=== PATIENT | female | born 1970 | race Caucasian/White ===

== ENCOUNTER 2021-07-03 12:22 | Inpatient (IN) | payer MEDICARE, MEDICAID ==
[~2021-07-03] VITALS: Ht 165.1 cm; Wt 46.9 kg
[2021-07-03] MEDS ORDERED: FLUC100T68 PO (18:22)
[2021-07-03] MEDS ORDERED: ALBU8HFA IH (18:22)
[2021-07-03] MEDS ORDERED: FAMO20 PO (18:22)
[2021-07-03] MEDS ORDERED: SULF-261 PO (18:22)
[2021-07-03] MEDS ORDERED: HALOPERIDOL 5 MG TABLET PO PRN (19:45)
[2021-07-03] MEDS ORDERED: ZOLPIDEM TARTRATE 10 MG TABLET PO PRN (19:45)
[2021-07-03 20:55] VITALS: BP 109/62
[2021-07-03] MEDS ORDERED: ARIP10TA38 PO (23:14)
[2021-07-04 06:43] VITALS: BP 115/78
[2021-07-04 07:20] LABS: BASOPHILS % (AUTO) 0.4 % (0.0-2.0); EOSINOPHILS % (AUTO) 0.7 % (1.0-6.0); HEMATOCRIT 37.3 % (36-46); HEMOGLOBIN 12.8 g/dL (12.0-16.0); LYMPHOCYTES # (AUTO) 1.6 K/uL (1.0-4.8); LYMPHOCYTES % (AUTO) 18.5 % (22.0-44.0); MEAN CORPUSCULAR HEMOGLOBIN 32.5 pg (26.0-34.0); MEAN CORPUSCULAR HGB CONC 34.4 G/dL (31.0-37.0); MEAN CORPUSCULAR VOLUME 94 fL (80-100); MONOCYTES # (AUTO) 0.9 K/uL (0.1-1.0); MONOCYTES % (AUTO) 10.6 % (2.0-9.0); NEUTROPHILS # (AUTO) 6.2 K/uL (1.8-7.7); NEUTROPHILS % (AUTO) 69.8 % (40.0-70.0); PLATELET COUNT (AUTO) 368 K/uL (150-450); RED BLOOD CELL COUNT(AUTO) 3.96 MIL/uL (4.00-5.20); RED CELL DISTRIBUTION WIDTH 14.6 % (11.5-14.5)
[2021-07-04 07:43] LABS: HEMOGLOBIN A1C 5.7 % (3.8-5.6)
[2021-07-04 07:56] LABS: ALANINE AMINOTRANSFERASE 25 U/L (12-78); ALBUMIN 2.8 g/dL (3.4-5.0); ALKALINE PHOSPHATASE 125 U/L (46-116); ANION GAP 4 mmol/L (8-16); ASPARTATE AMINOTRANSFERASE 16 U/L (15-37); BILIRUBIN,TOTAL 0.4 mg/dL (0.1-1.0); CALCIUM, TOTAL 8.7 mg/dL (8.8-10.5); CARBON DIOXIDE 34 mmol/L (22-29); CHLORIDE 100 mmol/L (98-107); CHOLESTEROL 173 mg/dL (131-200); CREATININE 0.76 mg/dL (0.60-1.30); FREE T4 (FREE THYROXINE) 1.53 ng/dL (0.76-1.46); GLOMERULAR FILTR. RATE CALC > 60 mL/min (>60); GLUCOSE,RANDOM 81 mg/dL (70-110); HDL CHOLESTEROL 29 mg/dL (40-60); LDL CHOL (CALC.) 128 mg/dL (0-130); POTASSIUM 3.7 mmol/L (3.5-5.1); SODIUM SERUM 138 mmol/L (136-145); THYROID STIMULATING HORMONE 0.74 uIU/mL (0.36-3.74); TOTAL PROTEIN, SERUM 7.5 g/dL (6.4-8.2); TRIGLYCERIDES 81 mg/dL (15-150); UREA NITROGEN, BLOOD 16 mg/dL (7-18)
[2021-07-04 08:15] VITALS: BP 110/60
[2021-07-04] MEDS: FAMOTIDINE 20 MG TABLET PO SCH (08:23)
[2021-07-04] MEDS: CEPHALEXIN MONOHYDRATE 500 MG CAPSULE PO SCH ×2 (08:23→16:25)
[2021-07-04] MEDS: NICOTINE 21 MG/24 HOUR PATCH TD PRN (08:27)
[2021-07-04] MEDS: PETROLATUM,WHITE 28 GM JELLY TP PRN (08:27)
[2021-07-04] MEDS: INFLUENZA VIRUS VACCINE QVS 2021-22 (6MO+)/PF 60 MCG/0.5 ML SYRINGE IM. ONE ×2 (08:28→16:52)
[2021-07-04] MEDS: PNEUMOCOCCAL VACCINE POLYVALENT 0.5 ML VIAL [PPSV23] IM. ONE ×2 (08:29→16:54)
[2021-07-04] MEDS ORDERED: LORazepam 2 MG/ML VIAL ONE (08:34)
[2021-07-04] MEDS ORDERED: DiphenhydrAMINE HCL 50 MG/ML VIAL ONE (08:34)
[2021-07-04] MEDS ORDERED: HALOPERIDOL LACTATE 5 MG/ML VIAL ONE (08:34)
[2021-07-04] MEDS ORDERED: MAGNESIUM HYDROXIDE SUSPENSION 30 ML UDCUP PO PRN (08:45)
[2021-07-04] MEDS ORDERED: BACITRACIN 28 GM OINTMENT TP PRN (08:45)
[2021-07-04] MEDS ORDERED: IBUPROFEN 600 MG TABLET PO PRN (08:45)
[2021-07-04] MEDS ORDERED: DOCUSATE SODIUM 100 MG CAPSULE PO PRN (08:45)
[2021-07-04] MEDS ORDERED: ONDANSETRON HCL 4 MG TABLET PO PRN (08:45)
[2021-07-04] MEDS ORDERED: MAG HYDROX/AL HYDROX/SIMETH ES 30 ML SUSPENSION UDCUP PO PRN (08:45)
[2021-07-04] MEDS ORDERED: PETROLATUM,WHITE 28 GM JELLY TP PRN (08:45)
[2021-07-04] MEDS ORDERED: OMEPRAZOLE 20 MG CAPSULE PO PRN (08:45)
[2021-07-04] MEDS ORDERED: BENZOCAINE/MENTHOL LOZENGE PO PRN (08:45)
[2021-07-04] MEDS ORDERED: LOPERAMIDE HCL 2 MG CAPSULE PO PRN (08:45)
[2021-07-04] MEDS ORDERED: CloNIDine HCL 0.1 MG TABLET PO PRN (08:45)
[2021-07-04] MEDS: ALBUTEROL SULFATE HFA 90 MCG/PUFF 8 GM INHALER IH PRN (14:29)
[2021-07-04 16:12] VITALS: BP 128/79
[2021-07-05 08:06] VITALS: BP 123/82
[2021-07-05] MEDS: FAMOTIDINE 20 MG TABLET PO SCH (08:11)
[2021-07-05] MEDS: CEPHALEXIN MONOHYDRATE 500 MG CAPSULE PO SCH ×2 (08:11→16:00)
[2021-07-05] MEDS: ARIPiprazole 10 MG TABLET PO SCH (08:12)
[2021-07-05] MEDS: NICOTINE 21 MG/24 HOUR PATCH TD PRN (08:19)
[2021-07-05 15:55] VITALS: BP 120/66
[2021-07-05] MEDS: ACETAMINOPHEN 325 MG TABLET PO PRN (15:57)
[2021-07-05 16:13] VITALS: BP 120/66
[2021-07-05] MEDS: ALBUTEROL SULFATE HFA 90 MCG/PUFF 8 GM INHALER IH PRN (20:14)
[2021-07-06 04:45] VITALS: BP 115/74
[2021-07-06] MEDS: CEPHALEXIN MONOHYDRATE 500 MG CAPSULE PO SCH ×2 (08:04→17:19)
[2021-07-06] MEDS: FAMOTIDINE 20 MG TABLET PO SCH (08:04)
[2021-07-06] MEDS: ARIPiprazole 10 MG TABLET PO SCH (08:04)
[2021-07-06] MEDS ORDERED: DiphenhydrAMINE HCL 50 MG/ML VIAL IM ONE (11:45)
[2021-07-06] MEDS ORDERED: HALOPERIDOL LACTATE 5 MG/ML VIAL IM ONE (11:45)
[2021-07-06] MEDS ORDERED: LORazepam 2 MG/ML VIAL IM ONE (11:45)
[2021-07-06 13:30] VITALS: BP 110/67
[2021-07-06 16:06] VITALS: BP 108/64
[2021-07-07 05:35] VITALS: BP 114/60
[2021-07-07 08:07] VITALS: BP 120/70
[2021-07-07] MEDS: CEPHALEXIN MONOHYDRATE 500 MG CAPSULE PO SCH ×2 (08:50→16:08)
[2021-07-07] MEDS: ARIPiprazole 10 MG TABLET PO SCH (08:50)
[2021-07-07] MEDS: FAMOTIDINE 20 MG TABLET PO SCH (08:51)
[2021-07-07] MEDS: LORazepam 2 MG TABLET PO PRN ×2 (08:59→09:16)
[2021-07-07 16:05] VITALS: BP 100/54
[2021-07-08] VITALS: BP 116/62
[2021-07-08] MEDS: ACETAMINOPHEN 325 MG TABLET PO PRN ×2 (00:14→05:00)
[2021-07-08 05:37] VITALS: BP 114/70
[2021-07-08] MEDS: CEPHALEXIN MONOHYDRATE 500 MG CAPSULE PO SCH (08:04)
[2021-07-08] MEDS: ARIPiprazole 10 MG TABLET PO SCH (08:04)
[2021-07-08] MEDS: NICOTINE 21 MG/24 HOUR PATCH TD PRN (08:08)
[2021-07-08 08:10] VITALS: BP 101/60
[2021-07-08] MEDS: PETROLATUM,WHITE 28 GM JELLY TP PRN (08:16)
[2021-07-08] MEDS: ALBUTEROL SULFATE HFA 90 MCG/PUFF 8 GM INHALER IH PRN (08:17)
[2021-07-08] MEDS ORDERED: ARIP10TA38 PO (13:46)
[2021-07-08 16:32] VITALS: BP 100/67
== END 2021-07-08 17:27 | disposition home or self-care (01) | DRG 885 ==
LOC: B3A 19:47
PROVIDERS: ADMIT Psychiatry & Neurology Psychiatry; ATTEND Psychiatry & Neurology Psychiatry
PROC: 3E0234Z Introduction of Serum, Toxoid and Vaccine into Muscle, Percutaneous Approach (ICD-10-PCS; principal; 2021-07-03)
PROC: 3E02340 Introduction of Influenza Vaccine into Muscle, Percutaneous Approach (ICD-10-PCS; 2021-07-03)
DX: F25.9 Schizoaffective disorder, unspecified (principal); N39.0 Urinary tract infection, site not specified; Z59.00 Homelessness unspecified; K59.00 Constipation, unspecified; K21.9 Gastro-esophageal reflux disease without esophagitis; J44.9 Chronic obstructive pulmonary disease, unspecified; G47.00 Insomnia, unspecified; F41.9 Anxiety disorder, unspecified; F12.10 Cannabis abuse, uncomplicated; Z20.822 Contact with and (suspected) exposure to COVID-19; F17.200 Nicotine dependence, unspecified, uncomplicated; Z88.1 Allergy status to other antibiotic agents; Z88.8 Allergy status to other drugs, medicaments and biological substances; Z71.51 Drug abuse counseling and surveillance of drug abuser; Z71.6 Tobacco abuse counseling; Z23 Encounter for immunization
CPT/HCPCS: 80053; 80061; 83036; 84439; 84443; 85025; 90686; 90732; J1200; J1630; J2060; J3535